=== PATIENT | male | born 1970 | race Caucasian/White ===

== ENCOUNTER 2020-12-04 08:47 | Emergency (ER) | payer BC, SELFPAY ==
[2020-12-04 08:59] VITALS: BMI 29.0
--- NOTE | 2020-12-04 09:59 | ED_ITS ---
HPI - Headache General: Chief Complaint: Headache Stated Complaint: LOPEZ Time Seen by Provider: 12/04/20 08:53 History of Present Illness: HPI Narrative: 50-year-old male presents to the emergency room with complaint of headache on the right frontal side. He has no history of migraines started out as a dull headache and then progressively worsened he tried some various [id number] medications. This morning he broke out with a rash on the scalp as well. There are some mild reddening of the right eye but no visual changes. The rash follows a dermatomal pattern and breaks at the midline. MD elicited complaint: headache Onset (ago): day(s) Onset description: gradually Location: right, temporal, retro-orbital and parietal Severity: severe Quality & Timing: throbbing and sharp Exacerbating factors: none Relieving factors: nothing Associated symptoms: Reports rash; Deny chest pain, confusion, cough, diaphoresis, eye pain, fever(s), lightheadedness, loss of vision, malaise, nausea, neck stiffness, numbness, paresthesias, photophobia, pre-syncope, seizures, short of breath, sound sensitivity, syncope, vomiting or weakness Treatments prior to arrival: acetaminophen and ibuprofen Review of Systems Const: Denies: fever(s), malaise or diaphoresis ENMT: Denies: throat pain, ear or mastoid pain, nasal discharge or nasal congestion Card: Denies: chest pain, lightheadedness, syncope or pre-syncope Resp: Denies: dyspnea, productive cough or non-productive cough GI: Denies: nausea or vomiting : Denies: flank pain, dysuria, urinary frequency or urinary urgency Skin/Breast: Reports: rash Neuro: Denies: confusion Physical Exam Const: COMMON NORMALS: no acute distress GENERAL APPEARANCE: cooperative and comfortable ORIENTATION/CONSCIOUSNESS: Yes awake, Yes oriented to person, Yes oriented to place and Yes oriented to time HENMT: COMMON NORMALS: normocephalic, atraumatic, hearing grossly normal bilaterally, external ears normal, EAC's normal, TM's normal bilaterally, Normal nasal mucous membranes and turbinates present, moist oral mucous membranes and oropharynx normal HEAD & SCALP: normocephalic and atraumatic NOSE: Normal nasal mucous membranes and turbinates present EXTERNAL EAR: Yes external ears normal EXTERNAL AUDITORY CANAL: EAC's normal TYMPANIC MEMBRANE: TM's normal bilaterally Eye: COMMON NORMALS: Equal, round and reactive pupils present, EOMs intact bilaterally, conjunctivae normal and no scleral icterus CONJUNCTIVA: Yes conjunctivae normal PUPIL: Yes Equal, round and reactive pupils present DIRECT OPHTHALMOSCOPY: No photophobia OTHER: Mild scleral injection Neck/C-Spine: COMMON NORMALS: full ROM, no lymphadenopathy, supple and no JVD Lymph: LYMPHATIC: no lymphadenopathy noted and no lymphedema noted Resp: COMMON NORMALS: normal respiratory effort, No retractions, No use of accessory muscles and clear to auscultation bilaterally AUSCULTATION: clear to auscultation bilaterally Cardio: COMMON NORMALS: no JVD, regular rate, regular rhythm and No murmurs present (Cardio) RATE: regular rate RHYTHM: regular rhythm GI: COMMON NORMALS: Soft to palpation and No hepatosplenomegaly present AUSCULTATION: Yes normoactive bowel sounds PALPATION: Yes Soft to palpation, No Tenderness to palpation present (GI), No Guarding due to palpation present (GI) and Yes No hepatosplenomegaly present Extremity: COMMON NORMALS: normal to inspection, capillary refill normal, no clubbing, cyanosis or edema, no calf tenderness and no pedal edema Neuro: SENSORIUM/ORIENTATION: Yes oriented to person, Yes oriented to place and Yes oriented to time Skin: OTHER: Rash on the scalp over the crown of the head sparing the forehead largely. There is some redness of the sclera on the right eye and a little swelling of the eyelid but no vesicles. No vesicles at the tip of the nose or anywhere on the face none on the ear canal. Course Vital Signs: Vital signs: Vital Signs Pulse Rate 76 12/04/20 11:37 Respiratory Rate 16 12/04/20 11:37 Blood Pressure 141/88 12/04/20 11:37 Pulse Oximetry 98 12/04/20 11:37 MDM - Headache MDM Narrative: Medical decision making narrative: Pattern is almost more co nsistent with a C2 occipital nerve zoster. He has a little redness of the eye but fluorescein eye exam there is no dendrites. There is a little bit of swelling on the lid of the eye but no rash. We will go ahead and discharge the patient home start on Valtrex I discussed with Dr. Culp he does not recommend any eyedrops at this point if he has any foreign body sensation in the I asked the patient to return otherwise he will follow up with Dr. Culp and his primary care doctor. Discharge Plan Discharge Patient Disposition: Home Clinical Impression: Varicella zoster, Headache Condition: Stable Prescriptions: New hydrocodone-acetaminophen 5-325 mg tablet 1 tab PO Q6H PRN (Reason: pain) Qty: 20 RF: 0 Zofran 4 mg tablet 4 mg PO Q6H PRN (Reason: nausea and vomiting) Qty: 20 RF: 0 Valtrex 1 gram tablet 1,000 mg PO TID 7 Days Qty: 21 RF: 0 Discharge Orders: Discharge ED (Routine); Ordered 12/04/20 Ordered By: Kevan Koch Referrals: Dustin Culp MD [Physician] - (Call for an appointment next week.) Discharge Diet: Usual diet Discharge Activity: Resume usual activity Patient Instructions: Opioid Safety Coding Level of Care Code 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
[2020-12-04] MEDS: fluorescein 1 mg Strip EYE-RIGHT (10:15)
[2020-12-04] MEDS: tetracaine 0.5% Op Soln 4 mL Btl 1 DROP EYE-RIGHT (10:15)
[2020-12-04] MEDS: ondansetron 2 mg/ML SDV 2 mL 4 MG IVP (10:44)
[2020-12-04] MEDS: morphine 4 mg/mL SDV 1 mL 8 MG IM (10:45)
[2020-12-04 10:48] VITALS: BP 124/91; PULSE 78; RESP 18; O2SAT 95
[2020-12-04 11:26] VITALS: RESP 16
[2020-12-04] MEDS: morphine 4 mg/mL SDV 1 mL IVP (11:26)
[2020-12-04 11:37] VITALS: BP 141/88; PULSE 76; RESP 16; O2SAT 98
== END 2020-12-04 11:36 | disposition home or self-care (01) ==
PROVIDERS: Emergency Provider Family Medicine
DX: B01.9 Varicella without complication (principal); R51.9 Headache, unspecified
CPT/HCPCS: 96374; 96375; 99283; J2270; J2405

== ENCOUNTER 2021-06-11 16:19 | Observation (INO) | payer BC, SELFPAY ==
[2021-06-11] VITALS (13 sets, daily range): BP systolic 114–170; BP diastolic 73–98; PULSE 70–108; RESP 16–22; TEMP 36.4–36.8; O2SAT 95–99; BMI 29.0
--- NOTE | 2021-06-11 17:23 | ED_ITS ---
Documented by User: Kevan Koch DO 06/14/21 08:51 HPI - Male Genitourinary General: Chief complaint: Urogenital-Male Stated complaint: Kidney stone Time Seen by Provider: 06/11/21 17:10 Source: patient Mode of arrival: ambulatory History of Present Illness: 51-year-old male presents emergency room chief complaint of right flank pain. Evidently has had this for the last several days he was seen at [facility]. He had a CT there they told him he had a kidney stone a little over 4 mm increase his tamsulosin, but he has not had any pain medications. He states he has passed 4 stones in the last couple of months. He is noted gross hematuria today has not had any fever sweats or chills he has right flank pain. Onset (ago): day(s) (5) Duration: constant Location: right flank Radiation: right inguinal region Severity: severe Quality: sharp Relieving factors: none Exacerbating factors: urination Associated symptoms: Reports hematuria and nausea; Deny discharge, dysuria, fevers/chills, rash, swelling, urinary incontinence, urinary retention, mass or vomiting Review of Systems Const: Denies: fever(s), chills, body aches, change in appetite, fatigue or ma laise ENMT: Denies: throat pain, ear or mastoid pain, nasal discharge or nasal congestion Card: Denies: chest pain, edema, dyspnea on exertion or orthopnea Resp: Denies: dyspnea, productive cough or non-productive cough GI: Reports: nausea; Denies: vomiting : Reports: hematuria; Denies: dysuria or urinary incontinence Skin/Breast: Denies: rash or pruritus PFS ED PFSH: Surgical History History of appendectomy Social History Smoking and tobacco status: never smoked Alcohol intake: current Physical Exam Const: GENERAL APPEARANCE: cooperative and comfortable ORIENTATION /CONSCIOUSNESS: Yes awake, Yes oriented to person, Yes oriented to place and Yes oriented to time HENMT: COMMON NORMALS: normocephalic, atraumatic and hearing grossly normal bilaterally HEAD & SCALP: normocephalic and atraumatic Neck/C-Spine: COMMON NORMALS: no JVD Resp: COMMON NORMALS: normal respiratory effort, No retractions, No use of accessory muscles and clear to auscultation bilaterally AUSCULTATION: clear to auscultation bilaterally Cardio: COMMON NORMALS: no JVD, regular rate, regular rhythm and No murmurs present (Cardio) RATE: regular rate RHYTHM: regular rhythm GI: COMMON NORMALS: Soft to palpation and No hepatosplenomegaly present AUSCULTATION: Yes normoactive bowel sounds PALPATION: Yes Soft to palpation, No Tenderness to palpation present (GI), No Guarding due to palpation present (GI) and Yes No hepatosplenomegaly present : BLADDER/KIDNEY EXAM: Yes CVA tenderness Back/Pelvis: GENERAL BACK: Yes CVA tenderness CVA tenderness: right Extremity: COMMON NORMALS: normal to inspection, capillary refill normal, no clubbing, cyanosis or edema, no calf tenderness and no pedal edema Neuro: SENSORIUM/ORIENTATION: Yes oriented to person, Yes oriented to place and Yes oriented to time Skin: COMMON NORMALS: no rashes or lesions noted GENERAL SKIN EXAM: no rashes or lesions noted Course Vital Signs: Vital signs: Vital Signs Temperature 98.0 F 06/12/21 12:57 Pulse Rate 73 06/12/21 12:57 Respiratory Rate 18 06/12/21 12:57 Blood Pressure 110/67 06/12/21 12:57 Pulse Oximetry 97 06/12/21 12:57 [facility] - Male Medical Decision Making Care signed out to Dr. Interiano at change of shift. See final notes for diagnosis and disposition. 51-year-old male checked out to me at shift change by Dr. Koch. This is a second time this gentleman has been seen for his right UVJ stone he has continued hydronephrosis. His pain has been difficult to control. Has had 12 of morphine here with some mild transient improvement, but is still in significant pain. His creatinine is 1.7. Unaware of his baseline, as he has no prior creatinine values in the computer he does appear hemoconcentrated with a hemoglobin of 17.2. No sign of infection. He does have gross hematuria. He will be admitted. Urology has agreed to see the patient. Lab Data : 06/11/21 17:22 06/12/21 04:14 Radiology Impressions Abdomen/Pelvis CT 06/11/21 18:12 IMPRESSION: Right distal ureteral calculus with mild hydronephrosis and hydroureter. Punctate nonobstructing right lower pole renal calculus is also present. KUB X-Ray 06/12/21 06:00 IMPRESSION: Distal right ureteral calculus favored to be unchanged in position. Laboratory Results WBC 9.7 10^3/uL (4.0-10.0) 06/11/21 17: RBC 5.58 10^6/uL (4.1-5.3) H 06/11/21 17: Hgb 17.2 g/dL (11.7-16.6) H 06/11/21 17: Hct 48.7 % (42.0-52.0) 06/11/21: MCV 87.3 fl (80-94) 06/11/21 17: MCH 30.8 pg (28.0-34.0) 06/11/21: MCHC 35.3 g/dL (30.0-36.0) 06/11/21: RDW 12.1 % (12.1-15.1) 06/11/21: Plt Count 283 10^3/cmm (130-400) 06/11/21: MPV 10.2 fL (7.4-10.4) 06/11/21: Neut % (Auto) 78.4 % 06/11/21: Lymph % (Auto) 11.2 % 06/11/21 17: [place] % (Auto) 9.6 % 06/11/21: Eos % (Auto) 0.1 % 06/11/21 17: Baso % (Auto) 0.2 % 06/11/21: Neut # (Auto) 7.63 10^3/uL (1.8-7.7) 06/11/21: Lymph # (Auto) 1.1 10^3/uL (0.8-4.8) 06/11/21 17: [place] # (Auto) 0.9 10^3/uL (0.2-0.9) 06/11/21 17: Eos # (Auto) 0.0 10^3/uL (0.0-0.8) 06/11/21 17:22 Baso # (Auto) 0.0 10^3/uL (0.0-0.1) 06/11/21 17:22 Nucleated RBC % (auto) 0 % 06/11/21 17:22 Nucleated RBCs # 0.0 /100WBC 06/11/21 17:22 Sodium 138 mmol/L (136-145) 06/11/21 17:22 Potassium 4.3 mmol/L (3.5-5.1) 06/11/21 17:22 Chloride 102 mmol/L (98-107) 06/11/21 17:22 Carbon Dioxide 25 mmol/L (22-29) 06/11/21 17:22 Anion Gap 15.3 (5-19) 06/11/21 17:22 BUN 20 mg/dL (6-20) 06/11/21 17:22 Creatinine 1.7 mg/dL (0.7-1.2) H 06/11/21 17:22 GFR Calculation 42.7 mL/min (90-130) L 06/11/21 17:22 Glucose 109 mg/dL (65-115) 06/11/21 17:22 Calculated Osmolality 289 mOsm/kg (285-295) 06/11/21 17:22 Calcium 8.3 mg/dL (8.5-10.5) L 06/11/21 17:22 Urine Color [place] (Yellow) 06/11/21 17:22 Urine Appearance Clear (CLEAR) 06/11/21 17:22 Urine pH TNP 06/11/21 17:22 Ur Specific [place] TNP 06/11/21 17:22 Urine Protein TNP 06/11/21 17:22 Urine Glucose (UA) TNP 06/11/21 17:22 Urine Ketones TNP 06/11/21 17:22 Urine Blood TNP 06/11/21 17:22 Urine Nitrate TNP 06/11/21 17:22 Urine Bilirubin TNP 06/11/21 17:22 Prot Sulfosalicylic Acd Negative (Negative) 06/11/21 17:22 Urine Urobilinogen TNP 06/11/21 17:22 Ur Leukocyte Esterase TNP 06/11/21 17:22 Urine RBC 5-10 /hpf (0-2) H 06/11/21 17:22 Urine WBC None /hpf (0-5) 06/11/21 17:22 Ur Squamous Epith Cells Rare /hpf (0-5) 06/11/21 17:22 Amorphous Sediment Not Reportable 06/11/21 17:22 Urine Bacteria Trace /hpf (NONE) 06/11/21 17:22 Urine Mucus Trace /hpf 06/11/21 17:22 Discharge Plan Discharge Patient Disposition: Admitted As Inpatient Admit Provider: Reno Roa Clinical Impression: Ureterolithiasis Condition: Stable Discharge Diet: Advance as tolerated and Clear Liquid Discharge Activity: Limit activity as instructed Coding Level of Care Code ED Medicaid Eligibility Specialist for Chg Fwd Exam Comprehensive Documented by User: Wilber Interiano DO 06/11/21 20:01 HPI - Male Genitourinary General: Chief complaint: Urogenital-Male Stated complaint: Kidney stone Time Seen by Provider: 06/11/21 17:10 PFS ED PFSH: Surgical History History of appendectomy Social History Smoking and tobacco status: never smoked Alcohol intake: current Course Consultations: Consultation #1: marco Time: 19:46 Vital Signs: Vital signs: Vital Signs Temperature 98.0 F 06/12/21 12:57 Pulse Rate 73 06/12/21 12:57 Respiratory Rate 18 06/12/21 12:57 Blood Pressure 110/67 06/12/21 12:57 Pulse Oximetry 97 06/12/21 12:57 MDM - Male Medical Decision Making 51-year-old male checked out to me at shift change by Dr. Koch. This is a second time this gentleman has been seen for his right UVJ stone he has continued hydronephrosis. His pain has been difficult to control. Has had 12 of morphine here with some mild transient improvement, but is still in significant pain. His creatinine is 1.7. Unaware of his baseline, as he has no prior creatinine values in the computer he does appear hemoconcentrated with a hemoglobin of 17.2. No sign of infection. He does have gross hematuria. He will be admitted. Urology has agreed to see the patient. Lab Data : 06/11/21 17:22 06/12/21 04:14 Radiology Impressions Abdomen/Pelvis CT 06/11/21 18:12 IMPRESSION: Right distal ureteral calculus with mild hydronephrosis and hydroureter. Punctate nonobstructing right lower pole renal calculus is also present. KUB X-Ray 06/12/21 06:00 IMPRESSION: Distal right ureteral calculus favored to be unchanged in position. Laboratory Results WBC 9.7 10^3/uL (4.0-10.0) 06/11/21 17: RBC 5.58 10^6/uL (4.1-5.3) H 06/11/21 17: Hgb 17.2 g/dL (11.7-16.6) H 06/11/21 17: Hct 48.7 % (42.0-52.0) 06/11/21 17: MCV 87.3 fl (80-94) 06/11/21 17: MCH 30.8 pg (28.0-34.0) 06/11/21 17: MCHC 35.3 g/dL (30.0-36.0) 06/11/21 17: RDW 12.1 % (12.1-15.1) 06/11/21 17: Plt Count 283 10^3/cmm (130-400) 06/11/21 17: MPV 10.2 fL (7.4-10.4) 06/11/21 17: Neut % (Auto) 78.4 % 06/11/21 17: Lymph % (Auto) 11.2 % 06/11/21: [place] % (Auto) 9.6 % 06/11/21 17: Eos % (Auto) 0.1 % 06/11/21 17: Baso % (Auto) 0.2 % 06/11/21 17: Neut # (Auto) 7.63 10^3/uL (1.8-7.7) 06/11/21 17: Lymph # (Auto) 1.1 10^3/uL (0.8-4.8) 06/11/21 17:22 [place] # (Auto) 0.9 10^3/uL (0.2-0.9) 06/11/21 17:22 Eos # (Auto) 0.0 10^3/uL (0.0-0.8) 06/11/21 17:22 Baso # (Auto) 0.0 10^3/uL (0.0-0.1) 06/11/21 17:22 Nucleated RBC % (auto) 0 % 06/11/21 17:22 Nucleated RBCs # 0.0 /100WBC 06/11/21 17:22 Sodium 138 mmol/L (136-145) 06/11/21 17:22 Potassium 4.3 mmol/L (3.5-5.1) 06/11/21 17:22 Chloride 102 mmol/L (98-107) 06/11/21 17:22 Carbon Dioxide 25 mmol/L (22-29) 06/11/21 17:22 Anion Gap 15.3 (5-19) 06/11/21 17:22 BUN 20 mg/dL (6-20) 06/11/21 17:22 Creatinine 1.7 mg/dL (0.7-1.2) H 06/11/21 17:22 GFR Calculation 42.7 mL/min (90-130) L 06/11/21 17:22 Glucose 109 mg/dL (65-115) 06/11/21 17:22 Calculated Osmolality 289 mOsm/kg (285-295) 06/11/21 17:22 Calcium 8.3 mg/dL (8.5-10.5) L 06/11/21 17:22 Urine Color [place] (Yellow) 06/11/21 17:22 Urine Appearance Clear (CLEAR) 06/11/21 17:22 Urine pH TNP 06/11/21 17:22 Ur Specific [place] TNP 06/11/21 17:22 Urine Protein TNP 06/11/21 17:22 Urine Glucose (UA) TNP 06/11/21 17:22 Urine Ketones TNP 06/11/21 17:22 Urine Blood TNP 06/11/21 17:22 Urine Nitrate TNP 06/11/21 17:22 Urine Bilirubin TNP 06/11/21 17:22 Prot Sulfosalicylic Acd Negative (Negative) 06/11/21 17:22 Urine Urobilinogen TNP 06/11/21 17:22 Ur Leukocyte Esterase TNP 06/11/21 17:22 Urine RBC 5-10 /hpf (0-2) H 06/11/21 17:22 Urine WBC None /hpf (0-5) 06/11/21 17:22 Ur Squamous Epith Cells Rare /hpf (0-5) 06/11/21 17:22 Amorphous Sediment Not Reportable 06/11/21 17:22 Urine Bacteria Trace /hpf (NONE) 06/11/21 17:22 Urine Mucus Trace /hpf 06/11/21 17:22 Discharge Plan Discharge Patient Disposition: Admitted As Inpatient Admit Provider: Reno Roa Clinical Impression: Ureterolithiasis Condition: Stable Discharge Diet: Advance as tolerated and Clear Liquid Discharge Activity: Limit activity as instructed Coding Level of Care Code ED Medicaid Eligibility Specialist for Chg Fwd Exam Comprehensive
--- NOTE | 2021-06-11 17:26 | XRR_ITS ---
PROCEDURE INFORMATION: Exam: XR Abdomen Exam date and time: 06/11/2021 5:38 PM Age: 51 years old Clinical indication: Abdominal pain; Localized; Right; Additional info: R renal stone TECHNIQUE: Imaging protocol: XR of the abdomen. Views: Frontal supine view of the abdomen. 1 View. COMPARISON: No relevant prior studies available. FINDINGS: Gastrointestinal tract: Moderate-large amount of stool in the ascending, transverse and proximal descending colon. Little stool is visualized in the distal descending colon and rectum. No bowel obstruction or pneumatosis. Intraperitoneal space: Single supine views submitted. The most superior aspect of the abdomen is not included. Organs: Assessment of urinary calculus disease is limited due to obscuration by abdominal content. If there is a strong clinical concern, additional imaging such as CT may also be considered. Small pelvic calcifications are likely phleboliths. Bones/joints: No acute findings. XR/XR KUB portable [id number] IMPRESSION: 1. Stool burden as described. No obvious bowel obstruction. See discussion above. 2. No acute findings. Other findings as above.
[2021-06-11 17:28] LABS: Basophils % 0.2 %; Eosinophils % 0.1 %; Hematocrit 48.7 % (42.0-52.0); Hemoglobin 17.2 g/dL (11.7-16.6); Lymphocytes # 1.1 10^3/uL (0.8-4.8); Lymphocytes % 11.2 %; Mean Corpuscular HGB Conc 35.3 g/dL (30.0-36.0); Mean Corpuscular Hemoglobin 30.8 pg (28.0-34.0); Mean Corpuscular Volume 87.3 fl (80-94); Mean Platelet Volume 10.2 fL (7.4-10.4); Monocytes # 0.9 10^3/uL (0.2-0.9); Monocytes % 9.6 %; Neutrophils # 7.63 10^3/uL (1.8-7.7); Neutrophils % 78.4 %; Nucleated Red Blood Cells % 0 %; Platelet Count 283 10^3/cmm (130-400); Red Blood Count 5.58 10^6/uL (4.1-5.3); Red Cell Distribution Width 12.1 % (12.1-15.1); White Blood Count 9.7 10^3/uL (4.0-10.0)
[2021-06-11] MEDS: ondansetron 2 mg/ML SDV 2 mL 4 MG IVP (17:34)
[2021-06-11] MEDS: morphine 4 mg/mL SDV 1 mL 8 MG IVP (17:34)
[2021-06-11 17:44] LABS: Urine Appearance Clear (CLEAR); Urine Color Orange (Yellow)
[2021-06-11 17:48] LABS: Add Urine Microscopic? YES
[2021-06-11 17:50] LABS: Bacteria Urine TRACE /hpf; Blood Urea Nitrogen 20 mg/dL (6-20); Calcium 8.3 mg/dL (8.5-10.5); Carbon Dioxide 25 mmol/L (22-29); Chloride 102 mmol/L (98-107); Glomerular Filtration Rate 42.7 mL/min (90-130); Glucose 109 mg/dL (65-115); Mucus Urine TRACE /hpf; Osmolality Calculated 289 mOsm/kg (285-295); Sodium 138 mmol/L (136-145)
[2021-06-11 17:51] LABS: Add Urine Culture? Yes; Squamous Epithelial Cell Urine RARE /hpf (0-5)
[2021-06-11 17:52] LABS: Sulfosalicylic Acid Urine Negative (Negative)
[2021-06-11 18:03] LABS: Anion Gap 15.3 (5-19); Potassium 4.3 mmol/L (3.5-5.1)
--- NOTE | 2021-06-11 18:12 | CTR_ITS ---
PROCEDURE INFORMATION: Exam: CT Abdomen And Pelvis Without Contrast Exam date and time: 06/11/2021 6:27 PM Age: 51 years old Clinical indication: Abdominal pain; Right; Prior surgery; Surgery date: 6+ months; Surgery type: Appy; Patient HX: C/O R flank pain w gross hematuria - known stone TECHNIQUE: Imaging protocol: Computed tomography of the abdomen and pelvis without contrast. Radiation optimization: All CT scans at this facility use at least one of these dose optimization techniques: automated exposure control; mA and/or kV adjustment per patient size (includes targeted exams where dose is matched to clinical indication); or iterative reconstruction. COMPARISON: CR (ABDOMEN, ) 06/11/2021 5:38 PM RADIATION DOSE METRICS: Total DLP (mGy-cm): 1086.77 FINDINGS: Liver: Normal. No mass. Gallbladder and bile ducts: Normal. No calcified stones. No ductal dilation. Pancreas: Normal. No ductal dilation. Spleen: Normal spleen size. Calcified splenic granuloma. Adrenal glands: Normal. No mass. Kidneys and ureters: Punctate right lower pole nonobstructing renal calculus measuring about 1 mm. There is a right distal ureteral calculus, measuring 5 x 4 x 4 mm at the mid/distal sacral level with mild right hydronephrosis and hydroureter. There is minimal perinephric stranding without significant fluid collection. No left renal calculi are noted. Stomach and bowel: Unremarkable. No obstruction. No mucosal thickening. Moderate stool burden. Appendix: No evidence of appendicitis. Intraperitoneal space: Unremarkable. No free air. No significant fluid collection. Arteries: Unremarkable. No abdominal aortic aneurysm. Lymph nodes: No enlarged lymph nodes. Urinary bladder: Unremarkable as visualized. Reproductive: Unremarkable as visualized. Bones/joints: No acute fracture. Soft tissues: No acute findings. CT/CT kidney stone [id number] IMPRESSION: Right distal ureteral calculus with mild hydronephrosis and hydroureter. Punctate nonobstructing right lower pole renal calculus is also present.
[2021-06-11] MEDS: lactated ringers 1,000 ML 999 ML IV (18:29)
[2021-06-11] MEDS: morphine 4 mg/mL SDV 1 mL IVP (19:18)
--- NOTE | 2021-06-11 19:44 | PC.NURSE ---
no relief from pain meds Dr Interiano at bedside
[2021-06-11] MEDS: HYDROmorphone 1 mg/mL INJ 1 mL IVP ×3 (20:04→23:24)
[2021-06-11] MEDS: lactated ringers 1,000 ML 125 ML IV (21:18)
[2021-06-11] MEDS: pantoprazole DR 40 mg Tablet PO (21:18)
--- NOTE | 2021-06-11 22:06 | P.HP_ITS ---
Providers/Chief Complaint Admitting Physician: Reno Roa MD Chief Complaint: Right distal ureteral stone with refractory pain History of Present Illness Daniela Lewis is a 51 year old male admitted tonight through ED for an almost 6mm obstructing RIGHT distal ureteral stone with refractory pain. Couldn't get pain controlled enough to manage as outpatient. Pain x several days. Was seen earlier in [facility] for these symptoms. No evidence of UTI. No fever or chills. Did have Gross Hematuria and nausea. He had only ibuprofen to take for pain. He is having difficulty with nausea and vomiting. Had been given Flomax. Work up: CT: as above. Additionally with punctate RLP stone. Moderate to severe hydronephrosis. I personally reviewed the films. UA: no UTI WBC: 9.7 Cr: 1.7 Plan: Admit for serial imaging, pain control, serial labs, and decision for intervention or continued conservative management. Review of Systems Const: Denies: fever(s) or chills Card: Denies: chest pain Resp: Denies: dyspnea Medications/Allergies Home Medications Medication Instructions Recorded Confirmed Last Taken Type fluticasone 250 mcg-salmeterol 50 1 ea INHALATION BID 06/11/21 06/11/21 06/11/21 History mcg/dose blistr powdr for inhalation (Advair Diskus) omeprazole 20 mg capsule,delayed 20 mg PO DAILY PRN 06/11/21 06/11/21 Unknown History release ondansetron 4 mg disintegrating 4 mg PO TID 4 Days #12 tab 06/12/21 Unknown Rx tablet oxycodone-acetaminophen 5 mg-325 1 tab PO Q6H #16 tab 06/12/21 Unknown Rx mg tablet (Percocet) prochlorperazine 25 mg rectal 25 mg [place] BID PRN #6 ea 06/12/21 Unknown Rx suppository (Compazine) Allergies Allergy/AdvReac Type Severity Reaction Status Date / Time No Known Allergies Allergy Verified 06/11/21 16:46 PFSH Acute PFSH: Surgical History (Updated 06/12/21 @ 08:52 by Reno Roa MD) History of appendectomy Social History Smoking and tobacco status: never smoked Alcohol intake: current Vitals/I&O/Wt Last Vital Signs Temp 98.2 F 06/11/21 20:44 Pulse 79 06/11/21 20:44 Resp 18 06/11/21 21:18 BP 143/86 06/11/21 20:44 Pulse Ox 97 06/11/21 20:44 06/11/21 06/11/21 06/11/21 06:59 14:59 22:59 Intake Total 1360 / 1360 Balance 1360 / 1360 Weight last 48 hrs Weight 180 lb Physical Exam Const: COMMON NORMALS: alert and well nourished GENERAL APPEARANCE: well ke mpt and well developed ORIENTATION/CONSCIOUSNESS: not confused HENMT: HEAD & SCALP: normocephalic and atraumatic Eye: COMMON NORMALS: conjunctivae normal and no scleral icterus Neck/C-Spine: COMMON NORMALS: full ROM GENERAL: Yes normal visual inspection Resp: COMMON NORMALS: normal respiratory effort EFFORT & INSPECTION: No labored and No Actively coughing AUSCULTATION: clear to auscultation bilaterally Cardio: RATE: regular rate RHYTHM: regular rhythm Extremity: COMMON NORMALS: no clubbing, cyanosis or edema Neuro: COMMON NORMALS: no focal motor deficits SENSORIUM/ORIENTATION: Yes alert Psych: COMMON NORMALS: mental status grossly normal APPEARANCE: Yes grossly normal and Yes well kempt ATTITUDE: Yes calm and Yes engaged Skin: COMMON NORMALS: no rashes or lesions noted and no jaundice Data : 06/11/21 17:22 06/12/21 04:14 A&P Assessment and plan (1) Right ureteral calculus: 5+ mm obstructing stone with refractory renal colic not adequately controlled with aggressive parenteral narcotics. Status: Acute (2) Renal colic on right side: secondary to RIGHT distal stone Status: Acute (3) Right renal stone: punctate RLP stone without obstruction Status: Acute (4) Asthma: Status: Acute Plan 1. Work to control pain with oral medication. He would like to try conservative management to see if he can pass the stone. I think he has a reasonable chance of succeeding if we can control his pain. 2. IV pain medication antiemetics as needed. Attestations Medical Necessity Statement*: uncontrolled pain. failed outpatient management. Coding Level of Care Code Acute Vocal Music Instructor for [facility] Fwd Exam Comprehensive Diagnoses Right ureteral calculus N20.1 Renal colic on right side N23 Right renal stone N20.0 Asthma J45.909
[2021-06-12] VITALS (10 sets, daily range): BP systolic 107–119; BP diastolic 62–76; PULSE 59–99; RESP 16–21; TEMP 36.4–37.1; O2SAT 96–98
[2021-06-12] MEDS: HYDROmorphone 1 mg/mL INJ 1 mL IVP ×3 (01:20→05:21)
[2021-06-12 05:15] LABS: Alanine Aminotransferase 20 U/L (0-41); Albumin Level 3.8 g/dL (3.5-5.2); Alkaline Phosphatase 72 IU/L (40-130); Anion Gap 13.2 (5-19); Aspartate Amino Transferase 19 U/L (0-40); Blood Urea Nitrogen 16 mg/dL (6-20); Calcium 7.9 mg/dL (8.5-10.5); Carbon Dioxide 27 mmol/L (22-29); Chloride 103 mmol/L (98-107); Globulin 2.4 g/dL (1.3-4.6); Glomerular Filtration Rate 45.8 mL/min (90-130); Glucose 111 mg/dL (65-115); Osmolality Calculated 290 mOsm/kg (285-295); Potassium 4.2 mmol/L (3.5-5.1); Sodium 139 mmol/L (136-145); Total Bilirubin 0.4 mg/dL (0.15-1.2); Total Protein 6.2 g/dL (6.6-8.7)
[2021-06-12] MEDS: lactated ringers 1,000 ML 125 ML IV (05:17)
--- NOTE | 2021-06-12 06:00 | XRR_ITS ---
PROCEDURE INFORMATION: Exam: XR Abdomen Exam date and time: 06/12/2021 6:26 AM Age: 51 years old Clinical indication: Abdominal pain; Flank; Right; Additional info: Right ureteral stone TECHNIQUE: Imaging protocol: XR of the abdomen. Views: Frontal supine view of the abdomen. 1 View. COMPARISON: CT kidney stone [id number] 06/11/2021 6:27 PM FINDINGS: Urinary tract: 5 mm distal right ureteral calculus favored to be unchanged in position, difficult to visualize but appearing to project over the sacrum at approximately the S2 level. Bilateral pelvic phleboliths again noted. Gastrointestinal tract: Solid stool within the right transverse colon. No evidence of bowel obstruction. Bones/joints: Unremarkable XR/XR KUB [id number] IMPRESSION: Distal right ureteral calculus favored to be unchanged in position.
--- NOTE | 2021-06-12 09:04 | PM.DCS ---
Discharge Providers Date of Admission: 06/11/21 20:44 Date of Discharge: June 12, 2021 Attending Provider at Admission: Reno Roa MD Attending Provider at Discharge: Reno Roa MD Diagnoses at Discharge Discharge Diagnosis (1) Right ureteral calculus: Status: Acute (2) Renal colic on right side: Status: Acute (3) Right renal stone: Status: Acute (4) Asthma: Status: Acute Reason for Visit Reason for Visit: Right distal ureteral stone with refractory pain Hospital Course Hospital Course He was admitted on the night of 06/11/2021 with refractory renal colic, 5 mm right distal ureteral stone, and no evidence of infection. Pain was aggressively treated with IV and oral narcotics with success. KUB on hospital day #2 failed to show any significant progression but his pain was much better controlled. Options including intervention via endoscopy versus ESWL versus conservative management inpatient or outpatient were thoroughly reviewed with the patient and his . Ultimately he wanted to see if he could pass the stone. He was converted to oral pain medication to focus on pain control and did well with that and was discharged on the afternoon of 06/12/2021. Physical Exam Narrative: Alert oriented no acute distress HEENT atraumatic normocephalic Neck good range of motion Cardiovascular regular rate and rhythm Respiratory no audible wheezes. Lungs clear to auscultation. Abdomen is soft nontender no palpable masses Extremities without edema Discharge Data Studies Completed and Pending Completed Studies During Hospitalization Category Date Time Status CT kidney stone [id number] Stat Cat Scan 06/11/21 18:12 Completed XR KUB [id number] Routine Exams 06/12/21 06:00 Completed XR KUB portable [id number] Stat Exams 06/11/21 17:26 Completed Pending at discharge Category Date Time Status Urine Culture Stat Lab 06/11/21 17:22 Received Radiology Impressions Abdomen/Pelvis CT 06/11/21 18:12 IMPRESSION: Right distal ureteral calculus with mild hydronephrosis and hydroureter. Punctate nonobstructing right lower pole renal calculus is also present. KUB X-Ray 06/12/21 06:00 IMPRESSION: Distal right ureteral calculus favored to be unchanged in position. Laboratory Results WBC 9.7 10^3/uL (4.0-10.0) 06/11/21 17:22 RBC 5.58 10^6/uL (4.1-5.3) H 06/11/21 17: Hgb 17.2 g/dL (11.7-16.6) H 06/11/21 17: Hct 48.7 % (42.0-52.0) 06/11/21 17: MCV 87.3 fl (80-94) 06/11/21 17: MCH 30.8 pg (28.0-34.0) 06/11/21: MCHC 35.3 g/dL (30.0-36.0) 06/11/21: RDW 12.1 % (12.1-15.1) 06/11/21: Plt Count 283 10^3/cmm (130-400) 06/11/21: MPV 10.2 fL (7.4-10.4) 06/11/21: Neut % (Auto) 78.4 % 06/11/21 17: Lymph % (Auto) 11.2 % 06/11/21: [place] % (Auto) 9.6 % 06/11/21 17: Eos % (Auto) 0.1 % 06/11/21 17: Baso % (Auto) 0.2 % 06/11/21: Neut # (Auto) 7.63 10^3/uL (1.8-7.7) 06/11/21: Lymph # (Auto) 1.1 10^3/uL (0.8-4.8) 06/11/21: [place] # (Auto) 0.9 10^3/uL (0.2-0.9) 06/11/21 17: Eos # (Auto) 0.0 10^3/uL (0.0-0.8) 06/11/21: Baso # (Auto) 0.0 10^3/uL (0.0-0.1) 06/11/21: Nucleated RBC % (auto) 0 % 06/11/21: Nucleated RBCs # 0.0 /100WBC 06/11/21 17: Sodium 139 mmol/L (136-145) 06/12/21 04:14 Potassium 4.2 mmol/L (3.5-5.1) 06/12/21 04:14 Chloride 103 mmol/L (98-107) 06/12/21 04:14 Carbon Dioxide 27 mmol/L (22-29) 06/12/21 04:14 Anion Gap 13.2 (5-19) 06/12/21 04:14 BUN 16 mg/dL (6-20) 06/12/21 04:14 Creatinine 1.6 mg/dL (0.7-1.2) H 06/12/21 04:14 GFR Calculation 45.8 mL/min (90-130) L 06/12/21 04:14 Glucose 111 mg/dL (65-115) 06/12/21 04:14 Calculated Osmolality 290 mOsm/kg (285-295) 06/12/21 04:14 Calcium 7.9 mg/dL (8.5-10.5) L 06/12/21 04:14 Total Bilirubin 0.4 mg/dL (0.15-1.2) 06/12/21 04:14 AST 19 U/L (0-40) 06/12/21 04:14 ALT 20 U/L (0-41) 06/12/21 04:14 Alkaline Phosphatase 72 IU/L (40-130) 06/12/21 04:14 Total Protein 6.2 g/dL (6.6-8.7) L 06/12/21 04:14 Albumin 3.8 g/dL (3.5-5.2) 06/12/21 04:14 Globulin 2.4 g/dL (1.3-4.6) 06/12/21 04:14 Urine Color [place] (Yellow) 06/11/21 17:22 Urine Appearance Clear (CLEAR) 06/11/21 17:22 Urine pH TNP 06/11/21 17:22 Ur Specific [place] TNP 06/11/21 17:22 Urine Protein TNP 06/11/21 17:22 Urine Glucose (UA) TNP 06/11/21 17:22 Urine Ketones TNP 06/11/21 17:22 Urine Blood TNP 06/11/21 17:22 Urine Nitrate TNP 06/11/21 17:22 Urine Bilirubin TNP 06/11/21 17:22 Prot Sulfosalicylic Acd Negative (Negative) 06/11/21 17:22 Urine Urobilinogen TNP 06/11/21 17:22 Ur Leukocyte Esterase TNP 06/11/21 17:22 Urine RBC 5-10 /hpf (0-2) H 06/11/21 17:22 Urine WBC None /hpf (0-5) 06/11/21 17:22 Ur Squamous Epith Cells Rare /hpf (0-5) 06/11/21 17:22 Amorphous Sediment Not Reportable 06/11/21 17:22 Urine Bacteria Trace /hpf (NONE) 06/11/21 17:22 Urine Mucus Trace /hpf 06/11/21 17:22 Vitals Last Vital Signs Temp 97.5 F L 06/12/21 07:35 Pulse 79 06/12/21 08:50 Resp 16 06/12/21 08:50 BP 107/62 06/12/21 07:35 Pulse Ox 98 06/12/21 08:50 Discharge Plan Discharge Patient Disposition: Home Condition: Stable Prescriptions: New Percocet 5-325 mg tablet 1 tab PO Q6H Qty: 16 0RF ondansetron 4 mg tablet,disintegrating 4 mg PO TID 4 Days Qty: 12 0RF Compazine 25 mg suppository 25 mg AK BID PRN (Reason: nausea and vomiting) Qty: 6 1RF Continued Advair Diskus 250-50 mcg/dose blister with device 1 ea INHALATION BID 0RF omeprazole 20 mg Capsule,Delayed Release(Dr/Ec) 20 mg PO DAILY PRN (Reason: Acid Reflux) 0RF Discharge Orders: Discharge Order (Routine); Ordered 06/12/21 Ordered By: Reno Roa Referrals: Reno Roa MD [Physician] - 06/16/21 (KUB first) Discharge Diet: Advance as tolerated and Clear Liquid Discharge Activity: Limit activity as instructed Patient Instructions: Opioid Safety Activity Restrictions/Additional Instructions: 1. We have selected the opportunity to try to pass the stone with conservative management. There is a good chance that this will succeed. 2. Symptomatic control is important. Prescriptions for Percocet, Zofran, and Compazine suppositories have been sent. 3. If you are having refractory symptoms and want to proceed with intervention sooner please let me know. My office number is [phone]. The hospital can reach me after hours if you have any questions. 4. We will plan on seeing him next week toward the end of the week with a plain x-ray like the one you had this morning. If your symptoms are well controlled and the stone is showing progress we can continue to wait. 5. Please strain your urine Discharge Attestations Time Spent in Discharge Care*: less than 30 min Quality Metrics Clinical Quality Measures [ No reported AMI, CVA or VTE this stay] Coding Level of Care Code Acute Chg FW DC note Diagnoses Right ureteral calculus N20.1 Renal colic on right side N23 Right renal stone N20.0 Asthma J45.909
[2021-06-12] MEDS: oxyCODONE-APAP 5-325 mg Tablet 1 TAB PO (09:35)
[2021-06-12] MEDS: tamsulosin 0.4 mg Capsule PO (09:36)
--- NOTE | 2021-06-12 12:55 | PC.NURSE ---
Dr. lara updated on patients status. verbal ok given to discharge patient. patient verbalized understanding of discharge instructions, home medications, and follow up appointments. pts picked up prescriptions prior to discharge. pt was sent home with a strainer, and directed to strain all urine.
== END 2021-06-12 12:15 | disposition home or self-care (01) ==
LOC: ER 19:50 → MEDSURG 22:09
PROVIDERS: Family Medicine; Admitting Provider Urology; Emergency Provider Emergency Medicine; Visit Provider Urology
DX: N20.2 Calculus of kidney with calculus of ureter (principal); N23 Unspecified renal colic; J45.909 Unspecified asthma, uncomplicated
CPT/HCPCS: 36415; 74018; 74176; 80048; 80053; 81001; 85025; 87086; 94667; 96361; 96374; 96375; 96376; 99285; G0378; J1170; J2270; J2405

== ENCOUNTER 2021-06-16 09:03 | Outpatient (CLI) | payer BC, SELFPAY ==
--- NOTE | 2021-06-16 09:09 | XRR_ITS ---
PROCEDURE INFORMATION: Exam: XR Abdomen Exam date and time: 06/16/2021 9:09 AM Age: 51 years old Clinical indication: Condition or disease; Kidney or ureter condition; Calculus (stone) in ureter; Prior surgery; Surgery type: Appendix; Patient HX: RT ureteral stone f/u; Additional info: Renal stone, kub TECHNIQUE: Imaging protocol: XR of the abdomen. Views: Frontal supine view of the abdomen. 1 View. COMPARISON: CR (ABDOMEN, ) 06/12/2021 6:26 AM FINDINGS: Gastrointestinal tract: Normal. No bowel dilation. Bones/joints: Unremarkable. Other findings: The 5 mm calcification projecting over the sacrum at the level of S2 is again noted and again favored to represent the stone within the distal right ureter. XR/XR KUB [id number] IMPRESSION: Redemonstration of a 5 mm calcification projecting over the right sacrum, suspected to represent the distal right ureteral calculus, which is unchanged.
== END 2021-06-16 09:04 | disposition home or self-care (01) ==
LOC: RAD 09:05
PROVIDERS: Visit Provider Urology
DX: N20.0 Calculus of kidney (principal)
CPT/HCPCS: 74018; 81003

== ENCOUNTER 2021-06-30 06:59 | Outpatient (CLI) | payer BC, SELFPAY ==
--- NOTE | 2021-06-30 07:14 | XR_ITS ---
WS: [id number] XR KUB [id number] REASON FOR EXAM: RIGHT URETERAL CALCULUS FINDINGS: There is a small calculus like density projected over the sacrum mid way between the sacroiliac joint and in the midline. This same density is seen on the abdomen films of from 06/11/2021 2 06/16/2021 wit hout change in position. Congruent with the distal right ureteral calculus seen on the CT scan of 05/21. No new findings. XR/XR KUB [id number] IMPRESSION: Presumed distal right ureteral calculus without change in position.
== END 2021-06-30 07:00 | disposition home or self-care (01) ==
LOC: RAD 07:00
PROVIDERS: Visit Provider Urology
DX: N20.1 Calculus of ureter (principal)
CPT/HCPCS: 74018; 81003

== ENCOUNTER 2021-07-04 05:42 | Day surgery (SDC) | payer BC, SELFPAY ==
[2021-07-01 10:26] VITALS: BMI 29.0
[2021-07-04] VITALS (12 sets, daily range): BP systolic 92–132; BP diastolic 64–94; PULSE 67–80; RESP 14–28; TEMP 36.1–36.8; O2SAT 98–100
--- NOTE | 2021-07-04 05:52 | XRR_ITS ---
PROCEDURE INFORMATION: Exam: XR Abdomen Exam date and time: 07/04/2021 5:54 AM Age: 51 years old Clinical indication: Screening exam; Other: Preop right eswl ureteral calculus; Prior surgery; Surgery type: Appy TECHNIQUE: Imaging protocol: XR of the abdomen. Views: Frontal supine view of the abdomen. 1 View. COMPARISON: CR XR KUB [id number] 06/30/2021 7:31 AM FINDINGS: Gastrointestinal tract: Normal. No bowel dilation. Organs: There is no significant change in the position of the distal right ureteral calculus overlying the right side of the sacrum. Bones/joints: Unremarkable. XR/XR KUB [id number] IMPRESSION: No significant change in the position of the distal right ureteral calculus project on the right side of the sacrum.
--- NOTE | 2021-07-04 06:23 | W.PM.OPSUD ---
Surgery/Procedure H&P Update DATE OF PROCEDURE: July 04, 2021 DATE H&P PERFORMED: 06/30/21 H&P UPDATE INFORMATION: I have reviewed H&P completed within last 30 days, I have examined patient prior to procedure, No changes to prior documentation and H&P is in [facility] [place] EMR on date indicated CHANGES TO PREVIOUS DOCUMENTATION: Reviewed today's KUB. No change in position. Discussed that with the patient and his . We will proceed as planned for ESWL likely stent. PREOP DIAGNOSIS: Refractory right distal ureteral stone PLANNED PROCEDURE: Operation Date: 07/04/21 07:00 Proposed Procedures p CYSTOSCOPY RIGHT URETERAL STENT RETROGRADE EXTRACORPOREAL SHOCKWAVE LITHOTRIPSY 99132 [id number] 21950 MODIFIER 26/N20.1(Not Applicable) - Reno Roa MD s Ureteral Stent Placement(Right) - Reno Roa MD s ESWL Extracorporeal Shockwave Lithotrispy(Right) - Reno Roa MD
[2021-07-04] MEDS: sodium chloride 0.9% 1,000 ML 30 ML IV (06:43)
--- NOTE | 2021-07-04 06:45 | ANES.PREANE2 ---
Pre-Anesthetic Assessment Height/Weight: Height 1.68 m Weight 81.647 kg Temp Pulse Resp BP Pulse Ox 98.2 F 74 18 121/87 98 07/04/21 06:10 07/04/21 06:10 07/04/21 06:10 07/04/21 06:10 07/04/21 06:10 Preop Diagnosis: Refractory right distal ureteral stone Operation Date: 07/04/21 07:00 Proposed Procedures p CYSTOSCOPY RIGHT URETERAL STENT RETROGRADE EXTRACORPOREAL SHOCKWAVE LITHOTRIPSY 76759 58329 33066 MODIFIER 26/N20.1(Not Applicable) - Reno Roa MD s Ureteral Stent Placement(Right) - Reno Roa MD s ESWL Extracorporeal Shockwave Lithotrispy(Right) - Reno Roa MD Familial anesthetic complications: None Was Beta Lopez taken within 24 hours: N/A Was Clonidine taken within 24 hours: N/A Last intake: Intake Last Liquid Date 07/03/21 Last Liquid Time 21:00 Last Solid Date 07/02/21 Last Solid Time 20:00 Social No alcohol and No tobacco Exam alert, oriented x 3, clear to auscultation bilaterally and regular rate & rhythm Airway Mallampati: Class II Dentition: other (few missing) Pulmonary Asthma (takes advair and hasn't had an attack in years ) CV/HEM None reported None reported Hepatic None reported GI Gastroesophageal Reflux Disease Metabolic None reported Musc/skel None reported Neuropsych None reported Anesthetic Plan ASA status: 2 Anesthesia: General Risk of > 500 ml blood loss (7ml/kg in children): No Medications/Allergies Home Medications Medication Instructions Recorded Confirmed Last Taken Type fluticasone 250 mcg-salmeterol 50 1 ea INHALATION BID 06/11/21 07/04/21 07/04/21 History mcg/dose blistr powdr for inhalation (Advair Diskus) omeprazole 20 mg capsule,delayed 20 mg PO DAILY PRN 06/11/21 07/04/21 07/03/21 History release Allergies Allergy/AdvReac Type Severity Reaction Status Date / Time No Known Allergies Allergy Verified 06/30/21 07:54 Current Medications Generic Name Dose Route Start Last Admin Trade Name Freq PRN Reason Stop Dose Admin Sodium Chloride 1,000 mls @ 30 mls/hr 07/04/21 06:00 05/16/22 06:43 Sodium Chloride 0.9% IV 07/05/21 05:59 30 mls/hr .Q24H KORI Administration PFSH Anesthesia Surgical History History of appendectomy Family History Father Cancer prostate Mother , at age 42 Asthma Social History Smoking and tobacco status: former smoker Alcohol intake: never Marital status: Current occupational status: employed History of recent travel: No Data Anesthesia Cardiac Studies: No Data to Display
[2021-07-04] MEDS: levofloxacin-dextrose 5 % 500 MG/100 ML PREMIX 100 MG IV (06:49)
--- NOTE | 2021-07-04 07:58 | PM.OP ---
Operative Report Date of procedure: July 04, 2021 Pre-op diagnosis: Refractory right distal ureteral stone Post-op diagnosis: Refractory right distal ureteral stone Procedure done: 1. Right ureteral extracorporeal shockwave lithotripsy 2. Cystoscopy with right retrograde ureteropyelogram, RIGHT ureteral stent Implants: 4.5 x 28 cm right ureteral stent without string Specimens removed/disposition: None Pathology: None Surgeon: Crispin Safety Equipment Testing Specialist: Robert: Lithotripsy chemistry quality control technician Anesthesia: General Estimated blood loss: None Urine output: Not measured Complications: None Findings: The stone appeared to fragment well. There was no significant spreading but it definitely became less dense with visualize cracks Retrograde showed some narrowing below the stone as expected and evidence of some edema around the stone. For that reason a stent was left indwelling. Brief History: Mr. Lewis is a very pleasant 51-year-old white male recently diagnosed with severe refractory right renal colicky symptoms secondary to a stone in the right ureter near the junction of the mid and distal third. Ultimately was treated both inpatient and outpatient conservatively but failed to pass the stone. Admitted today for ESWL +/- stent Procedure: After routine preoperative evaluation examination and obtaining of informed consent he was taken to the operating suite on 07/04/2021 where general anesthesia was administered without difficulty after appropriate timeout was performed, SCDs confirmed to be functioning, preoperative antibiotics administered, beta-gloria protocol confirmed. Positioned on the [place] unit in supine position paying careful attention to avoiding pressure points. The stone was easily identified with the shock head positioned anteriorly. Biplanar fluoroscopy was utilized to focus on the stone. Therapy was initiated intensity of 1 and throughout the procedure advanced an intensity of 9. Initial rate was 70 with advancement to 90 after the stone started showing some change. A total of 2500 shocks were administered. The stone did demonstrate change both in decreasing density, a very minimal amount of spreading, and some distinct fragmentation lines identified Because the stone had been stuck at that 1 point for quite some time it was decided to do retrograde ureteropyelogram. He was then prepped and draped in usual sterile fashion in dorsolithotomy position paying careful attention to avoiding pressure points. A 21 Vincentian cystoscope could not easily be introduced into urethra meatus due to some mild meatal stenosis and it was dilated with [place] sounds. The scope was then advanced into the bladder without difficulty and an 8 Vincentian cone-tip catheter was utilized for a right retrograde ureteropyelogram that demonstrated normal course and caliber of the ureter. Just below the level of the stone the ureter was somewhat narrowed consistent with inflammatory changes. The ureter proximal to the stone was mildly dilated. The pyelocalyceal system was normal. Based on those findings it was decided to leave a stent indwelling. A 4.5 Vincentian by 28 cm double-pigtail stent was advanced over the guidewire through the cystoscope into appropriate position as confirmed via fluoroscopy and cystoscopy. Bladder was drained and the procedure was completed. He tolerated procedure well without complications and was awakened in the operating room and returned to the recovery room in stable condition. PLANS: 1. Anticipate discharge from 2. Follow-up in about 2 weeks with a KUB likely cystoscopy stent removal. 3. Strain Urines save any specimens. 4. I have reviewed my out-of-town schedule with him. Did discuss options for evaluation with our office, [facility] if there is any questions or concerns and I can certainly be reached by phone
[2021-07-04] MEDS: iohexol 300 mg/mL 50 mL Btl (OR ONLY) XX (08:06)
--- NOTE | 2021-07-04 08:17 | SUR.PHASEI ---
0802 PT TO PACU 5 , PT SLEEPS WITH GOOD RESP EFFORT NOTED VSS MONITOR IS SR, PT WITH ORAL AIRWAY IN PLACE, IV TO RT AC #20 WITH NS 100ML UP AT KVO RATE PER GRAVITY, PT ID BRACELET TO LT WRIST , PT ID'D WITH 2 IDENTIFIERS, ABDOMEN SOFT. BILAT SCDS ON.
--- NOTE | 2021-07-04 08:26 | SUR.PHASEI ---
0825 PT AWAKES , ORAL AIRWAY OUT PT VERBALZIED APPROPRIATLEY, MONITOR UNCHANGED, PT VERBALLY DENIES PAIN, AND NAUSEA.
--- NOTE | 2021-07-04 13:20 | ANE.PACU2 ---
Inpatient post-anesthesia follow up: Airway intact: Yes Vital signs: Temperature 97.0 F Pulse Rate 75 Respiratory Rate 18 Blood Pressure 123/66 Pulse Oximetry 98 Oxygen Delivery Me thod Room Air Oxygen Flow Rate 8 Fraction of Inspir ed Oxygen Hydration adequate: Yes Nausea and vomiting: Yes Pain level: 2 Mental status: Baseline
== END 2021-07-04 09:16 | disposition home or self-care (01) ==
PROVIDERS: PCP Nurse Practitioner; Visit Provider Urology
PROC: 0TJB8ZZ Inspection of Bladder, Via Natural or Artificial Opening Endoscopic (ICD-10-PCS; CPT 52000; principal; 2021-07-04 07:00)
PROC: (CPT 50605; 2021-07-04 07:00)
PROC: (CPT 50590; 2021-07-04 07:00)
DX: N20.1 Calculus of ureter (principal); K21.9 Gastro-esophageal reflux disease without esophagitis; Z87.891 Personal history of nicotine dependence
CPT/HCPCS: 50590; 52332; 74018; C2625; J1100; J1956; J2250; J2370; J2405; J2704; J3010; J7030

== ENCOUNTER → 2021-07-19 16:46 | Outpatient (BNVA) | payer BC, SELFPAY | PROVIDERS: PCP Nurse Practitioner; Visit Provider Urology | DX: N20.1 Calculus of ureter (principal) | CPT/HCPCS: 74018; 81003 ==

== ENCOUNTER 2022-02-06 11:51 | Outpatient (CLI) | payer BC, SELFPAY ==
--- NOTE | 2022-02-06 12:04 | XR_ITS ---
WS: [id number] Exam: XR KUB [id number] Date/Time of Exam: 02/06/2022 12:14 PM Reason For Exam: Renal Stone Comparison 07/19/2021. No bowel obstruction or free air. No sign of organ enlargement. Mild ileus. Regional bony elements ar e intact. Probable diffuse idiopathic skeletal hyperostosis. XR/XR KUB [id number] IMPRESSION: 1. Mild ileus. No acute abdominal process.
== END 2022-02-06 11:52 | disposition home or self-care (01) ==
PROVIDERS: PCP Nurse Practitioner; Visit Provider Urology
DX: N20.0 Calculus of kidney (principal); K56.7 Ileus, unspecified
CPT/HCPCS: 74018; 81003